=== PATIENT | male | born 1945 | race Caucasian/White ===

== ENCOUNTER → 2019-11-20 06:27 | Outpatient (CLI) | payer OTHER, SELFPAY ==
--- NOTE | 2019-11-20 | DI.ECHO.S_ITS ---
[facility]---------+ [facility] +---------+ : : [address] : [place] : : : : [id number] : : : : Phone: [phone] +---------+ Echocardiogram Report + + :Name: TELLO DOS SANTOS Study Date: 11/20/2019 Height: 71 in : :[facility] Weight: 210 lb : : Gender: Male BSA: 2.2 m2 : :: 1945 Age: 73 yrs BP: 144/80 mmHg: :Reason For Study: CAD : : Performed By: Maria L Madera : :Referring: [email or web address] : + + Interpretation Summary The left ventricle is normal in size, wall thickness, and systolic function without any focal wall motion abnormalities with the ejection fraction visually estimated to be 60-65%. Diastolic parameters suggest probable normal left ventricular diastolic function and normal filling pressures. The right ventricle is normal in size and function. Pulmonary artery pressures cannot be estimated because of the lack of a measurable TR jet velocity. Both atria are normal in size. There is moderate aortic valve sclerosis with mild aortic stenosis with a mean gradient of 10 mmHg and mild aortic regurgitation. There is no other significant valvular heart disease. ORDERING PHYSICIAN: LYDIA CORDOVA Procedure: The study quality was technically adequate. A two-dimensional transthoracic echocardiogram with color flow and Doppler was performed. There is no prior echocardiogram noted for this patient. The patient was in sinus bradycardia with heart rates between 55-61 bpm during the exam. Left Ventricle: The left ventricle is normal in size, wall thickness, and systolic function without any focal wall motion abnormalities. The ejection fraction is estimated to be 60-65%. Diastolic parameters suggest probable normal left ventricular diastolic function and normal filling pressures. Right Ventricle: The right ventricle is normal in size and function. Atria: Both atria are normal in size. The interatrial septum is intact with no evidence for an atrial septal defect. There is no Doppler evidence for an interatrial shunt. Mitral Valve: The mitral valve is grossly normal. There is no mitral regurgitation noted. Aortic Valve: The aortic valve is trileaflet. There is moderate aortic valve sclerosis. The aortic valve is moderately calcified. There is mildly reduced leaflet mobility. There is mild aortic stenosis. The aortic valve mean gradient is 10 mmHg. There is mild aortic regurgitation. Tricuspid Valve: The tricuspid valve is normal in structure and function. There is a trace or physiologic amount of tricuspid regurgitation. Pulmonary artery pressures cannot be estimated because of the lack of a measurable TR jet velocity. Pulmonic Valve: The pulmonic valve is not well seen, but is grossly normal. There is a trace or physiologic amount of pulmonic regurgitation. There is no other significant valvular heart disease. Great Vessels: The aortic root is normal size. The ascending aorta is normal in size. The inferior vena cava was not visualized. Pericardium/ Pleura There is no pericardial effusion. There is no pleural effusion. MMode/2D Measurements & Calculations LVIDd: 4.7 cm LVOT diam: 2.2 cm LVIDs: 3.1 cm Ao root diam: 3.2 cm FS: 33.8 % asc Aorta Diam: 3.2 cm EPSS: 0.99 cm Ao Arch Diam (Prox Trans): 3.1 cm IVSd: 1.0 cm LVPWd: 1.1 cm LV negron. diameter/BSA (cm/m^2): 2.2 LV sys. diameter/BSA (cm/m^2): 1.4 LA A2 area: 22.8 cm2 RA long axis: 4.3 cm LA A4 area: 16.9 cm2 RA area: 14.9 cm2 LA length (vol): 5.3 cm RA vol: 44.2 ml LA vol: 61.1 ml RA : 20.5 ml/m2 LA vol index: 28.4 ml/m2 RVD1 (basal): 3.3 cm TAPSE: 2.3 cm Doppler Measurements & Calculations Ao V2 max: 212.9 cm/sec LVOT Max Asim: 105.1 cm/sec Ao V2 mean: 145.1 cm/sec LV V1 max P.4 mmHg Ao max P.1 mmHg LV V1 VTI: 25.5 cm Ao mean P.7 mmHg MICAH(I,D): 1.9 cm2 Ao V2 VTI: 49.4 cm MICAH(V,D): 1.9 cm2 sev ratio: 0.52 MICAH indexed to BSA (cm^2/m^2): 0.91 MV E max asim: 87.9 cm/sec PA V2 max: 80.8 cm/sec MV A max asim: 105.1 cm/sec PA V2 mean: 55.4 cm/sec MV E/A: 0.84 PA mean P.4 mmHg Med Peak E' Asim: 7.4 cm/sec PA pr(Accel): 24.5 mmHg E/E' med: 11.9 PA Accel Time: 0.12 sec Lat Peak E' Asim: 7.3 cm/sec E/E' lat: 12.1 E/e' average: 12.0 MV dec time: 0.27 sec MV P1/2t: 76.4 msec MV P1/2t max asim: 88.1 cm/sec SV(LVOT): 96.4 ml MVA(P1/2t): 2.9 cm2 Reading Physician:ALLIE
== END ==
PROVIDERS: Referring Provider Nurse Practitioner; Visit Provider Nurse Practitioner
DX: I35.2 Nonrheumatic aortic (valve) stenosis with insufficiency (principal); I25.10 Atherosclerotic heart disease of native coronary artery without angina pectoris
CPT/HCPCS: 93306